=== PATIENT | female | born 1990 | race Caucasian/White ===

== ENCOUNTER 2019-08-21 01:34 | Inpatient (IN) | payer OTHER ==
[~2019-08-21] VITALS: Ht 162.6 cm; Wt 78.8 kg
[2019-08-21] MEDS ORDERED: FAMOTIDINE 20 MG/2 ML ONE (01:56)
[2019-08-21] MEDS ORDERED: ONDANSETRON 2MG/ML, 2ML ONE ×2 (01:56→05:53)
[2019-08-21] MEDS ORDERED: MORPHINE SULFATE 4 MG/ML, 1ML ONE ×2 (01:56→02:40)
[2019-08-21] MEDS ORDERED: ONDANSETRON 2MG/ML, 2ML IVPush ONE (02:00)
[2019-08-21] MEDS ORDERED: SODIUM CHLORIDE FLUSH 10ML SYR IVF ONE (02:00)
[2019-08-21] MEDS ORDERED: FAMOTIDINE 20 MG/2 ML IV ONE (02:00)
--- NOTE | 2019-08-21 02:10 | NUR ---
PT REPORTS UPPER ABD PAIN AFTER EATING A STEAK.
[2019-08-21 02:14] LABS: MEAN CORPUSCULAR HEMOGLOBIN 29.4 pg (27.0-34.8); MEAN CORPUSCULAR HGB CONC 32.9 g/dL (32.4-35.8); MEAN CORPUSCULAR VOLUME 89.6 fL (80-100); MEAN PLATELET VOLUME 7.5 fL (7.4-10.4); PLATELET COUNT 389 x10^3/uL (130-400); RED BLOOD COUNT 4.56 x10^6/uL (3.82-5.3); RED CELL DISTRIBUTION WIDTH 13.8 % (9.6-15.2)
[2019-08-21] MEDS: MORPHINE SULFATE 4 MG/ML, 1ML IVPush PRN ×2 (02:21→02:44)
--- NOTE | 2019-08-21 02:22 | NUR ---
TO US AT THIS TIME, MEDICATED PRIOR FOR PAIN
[2019-08-21 02:28] LABS: ALANINE AMINOTRANSFERASE 30 U/L (12-78); ALBUMIN 3.6 g/dL (3.4-5.0); ANION GAP 8 mmol/L (5-15); CALCIUM 8.7 mg/dL (8.5-10.1); CHLORIDE 107 mmol/L (98-107); CREATININE 0.84 mg/dL (0.55-1.02)
[2019-08-21 02:32] LABS: ALKALINE PHOSPHATASE 63 U/L (45-117); BILIRUBIN,TOTAL 0.3 mg/dL (0.2-1.0); TOTAL PROTEIN 7.1 g/dL (6.4-8.2)
[2019-08-21 02:42] LABS: BASOPHILS # (AUTO) 0.14 x10^3/uL (0-0.1); BASOPHILS % (AUTO) 1 % (0-1); EOSINOPHILS # (AUTO) 0.03 x10^3/uL (0-0.4); EOSINOPHILS % (AUTO) 0 % (1-7); LYMPHOCYTES # (AUTO) 4.87 x10^3/uL (1-3.4); LYMPHOCYTES % (AUTO) 24 % (22-44); MD SCAN; MONOCYTES # (AUTO) 0.82 x10^3/uL (0.2-0.8); MONOCYTES % (AUTO) 4 % (2-9); NEUTROPHILS # (AUTO) 14.17 x10^3/uL (1.8-6.8); NEUTROPHILS % (AUTO) 71 % (42-75)
--- NOTE | 2019-08-21 02:44 | NUR ---
MEDICATED FOR PAIN
[2019-08-21] MEDS ORDERED: HYDROmorphone 1 MG/ML, 1ML VIAL ONE (03:11)
--- NOTE | 2019-08-21 03:14 | NUR ---
MEDICATED FOR PAIN
[2019-08-21] MEDS ORDERED: HYDROmorphone 1 MG/ML, 1ML INJ IV ONE (03:30)
[2019-08-21] MEDS ORDERED: PIPERACILLIN/TAZO/PMX 3.375GM 50 ML IV ONE (04:00)
[2019-08-21] MEDS ORDERED: PIPERACILLIN/TAZO/PMX 3.375GM 50 ML ONE (04:14)
[2019-08-21] MEDS ORDERED: SODIUM CHLORIDE 0.9% 1,000 ML IV ONE (04:42)
--- NOTE | 2019-08-21 04:43 | NUR ---
report to or at this time
[2019-08-21] MEDS ORDERED: BUPIVACAINE/PF 0.5% ONE (04:55)
[2019-08-21] MEDS ORDERED: EPINEPHRINE 1 MG/ML, 1ML ONE (04:55)
[2019-08-21] MEDS ORDERED: BUPIVACAINE/PF-EPI 0.5% 1:200K INFIL ONE (04:59)
[2019-08-21] MEDS ORDERED: FENTANYL PF 250 MCG/5ML ONE (05:23)
[2019-08-21] MEDS ORDERED: SUCCINYLCHOLINE 20 MG/ML, 10ML ONE (05:31)
[2019-08-21] MEDS ORDERED: PROPOFOL 10 MG/ML, 20ML ONE (05:31)
[2019-08-21] MEDS ORDERED: DEXAMETHASONE 4 MG/ML, 1ML ONE ×2 (05:31)
[2019-08-21] MEDS ORDERED: ROCURONIUM 10MG/ML,5ML ONE (05:32)
[2019-08-21] MEDS ORDERED: MEPERIDINE/PF 25MG/ML,1ML IVPush PRN (06:00)
[2019-08-21] MEDS ORDERED: ONDANSETRON 2MG/ML, 2ML IV PRN (06:00)
[2019-08-21] MEDS ORDERED: PROMETHAZINE 25 MG/ML, 1ML IV PRN (06:00)
[2019-08-21] MEDS ORDERED: OXYcodone 5 MG/5 ML ORAL.SOL UDC PO PRN (06:00)
[2019-08-21] MEDS ORDERED: hydrALAzine 20 MG/ML, 1ML IV PRN (06:00)
[2019-08-21] MEDS ORDERED: FENTANYL PF 100 MCG/2ML IV PRN (06:00)
[2019-08-21] MEDS ORDERED: LABETALOL 5MG/ML, 20ML IV PRN (06:00)
[2019-08-21] MEDS ORDERED: HYDROmorphone 2 MG/ML, 1ML IVPush PRN (06:00)
[2019-08-21] MEDS ORDERED: ACETAMINOPHEN 325 MG TABLET PO PRN (06:00)
[2019-08-21] MEDS ORDERED: LACTATED RINGERS 1,000 ML IV SCH (06:36)
[2019-08-21] MEDS ORDERED: OXYcodone 5 MG/5 ML ORAL.SOL UDC ONE (06:44)
[2019-08-21] MEDS ORDERED: morphine SULFATE 10 MG/ML, 1ML IVPush PRN (07:00)
[2019-08-21] MEDS ORDERED: PROMETHAZINE 25 MG/ML, 1ML IM PRN (07:00)
[2019-08-21] MEDS ORDERED: ONDANSETRON 2MG/ML, 2ML IVPush PRN (07:00)
[2019-08-21 07:25] VITALS: BP 128/82
[2019-08-21] MEDS ORDERED: morphine SULFATE 10 MG/ML, 1ML ONE (08:54)
[2019-08-21] MEDS ORDERED: OXYcodone/APAP 7.5/325MG TABLET PO PRN (09:00)
[2019-08-21 12:45] VITALS: BP 120/79
[2019-08-21] MEDS ORDERED: OXYC-306 PO (14:05)
[2019-08-21] MEDS ORDERED: ONDA4TAB7 PO (14:05)
== END 2019-08-21 14:30 | disposition home or self-care (01) | DRG 419 ==
LOC: ED 02:15 → EDIP 04:48 → 4NE 07:29 → DCLOUNGE 14:11
PROVIDERS: ADMIT Surgery; ATTEND Surgery
PROC: 0FT44ZZ Resection of Gallbladder, Percutaneous Endoscopic Approach (ICD-10-PCS; principal; 2019-08-21 05:30)
DX: K80.62 Calculus of gallbladder and bile duct with acute cholecystitis without obstruction (principal); K82.8 Other specified diseases of gallbladder; K21.9 Gastro-esophageal reflux disease without esophagitis
CPT/HCPCS: 36415; J3490; S0020; 76700; 80053; 83690; 84703; 85025; 88304; 99285; J0171; J1100; J1170; J2405; J2543; J2704; J3010; J0330; J2270; J7030

== ENCOUNTER 2020-01-07 09:27 | Outpatient (CLI) | payer OTHER ==
[~2020-01-07 09:27] MED LIST: ONDA4TAB7 PO; OXYC-306 PO
[2020-01-07 09:50] LABS: BASOPHILS # (AUTO) 0.03 x10^3/uL (0-0.1); BASOPHILS % (AUTO) 0 % (0-1); EOSINOPHILS # (AUTO) 0.13 x10^3/uL (0-0.4); EOSINOPHILS % (AUTO) 2 % (1-7); LYMPHOCYTES # (AUTO) 2.72 x10^3/uL (1-3.4); LYMPHOCYTES % (AUTO) 35 % (22-44); MD NO; MEAN CORPUSCULAR HEMOGLOBIN 30.1 pg (27.0-34.8); MEAN CORPUSCULAR HGB CONC 34.1 g/dL (32.4-35.8); MEAN CORPUSCULAR VOLUME 88.3 fL (80-100); MEAN PLATELET VOLUME 8.2 fL (7.4-10.4); MONOCYTES # (AUTO) 0.38 x10^3/uL (0.2-0.8); MONOCYTES % (AUTO) 5 % (2-9); NEUTROPHILS # (AUTO) 4.45 x10^3/uL (1.8-6.8); NEUTROPHILS % (AUTO) 58 % (42-75); PLATELET COUNT 313 x10^3/uL (130-400); RED BLOOD COUNT 4.49 x10^6/uL (3.82-5.3)
[2020-01-07 10:01] LABS: ALANINE AMINOTRANSFERASE 25 U/L (12-78); ALBUMIN 3.8 g/dL (3.4-5.0); ANION GAP 4 mmol/L (5-15); CALCIUM 8.8 mg/dL (8.5-10.1); CHLORIDE 109 mmol/L (98-107); CREATININE 0.85 mg/dL (0.55-1.02)
[2020-01-07 10:02] LABS: HCT (SEDRATE) 39.7 % (34.6-47.8)
[2020-01-07 10:05] LABS: ALKALINE PHOSPHATASE 73 U/L (45-117); BILIRUBIN,TOTAL 0.5 mg/dL (0.2-1.0); TOTAL PROTEIN 7.5 g/dL (6.4-8.2)
== END 2020-01-07 23:59 | disposition home or self-care (01) ==
LOC: LAB 09:27
PROVIDERS: ATTEND Family Medicine
DX: E55.9 Vitamin D deficiency, unspecified (principal); G47.9 Sleep disorder, unspecified; R51 Headache
CPT/HCPCS: 36415; 80053; 82306; 82728; 85025; 85651; 86038; 86160; 86225

== ENCOUNTER 2020-01-08 10:48 | Outpatient (CLI) | payer OTHER | END 2020-01-08 23:59 | disposition home or self-care (01) | LOC: RAD 10:48 | PROVIDERS: ATTEND Family Medicine | DX: H93.8X3 Other specified disorders of ear, bilateral (principal); R51 Headache | CPT/HCPCS: 72040 ==

== ENCOUNTER 2020-02-14 14:08 | Outpatient (CLI) | payer OTHER ==
[2020-02-14] MEDS ORDERED: OMNIPAQUE 350 MG/ML, 100ML BOTTLE ONE (15:51)
== END 2020-02-14 23:59 | disposition home or self-care (01) ==
LOC: RAD 14:08
PROVIDERS: ATTEND Otolaryngology
DX: H93.A9 Pulsatile tinnitus, unspecified ear (principal)
CPT/HCPCS: 70480; Q9967

== ENCOUNTER 2020-02-20 16:00 | Emergency (ER) | payer OTHER ==
[~2020-02-20] VITALS: Ht 162.6 cm; Wt 74.0 kg
--- NOTE | 2020-02-20 16:42 | NUR ---
PT WITH C/O "MIGRAINE LIKE" JOSEPH, SINUS PRESSURE. PT STATES SHE SLIGHTLY INCREASE IN WORK OF BREATHING. PT WITH POSITIVE COVID TEST REPORTED TODAY, SHE WAS TESTED 02/17. PT STATES SHE HAS REALLY BEEN HAVING SINUS ISSUES SINCE 2018. PT STATES SHE RECENTLY HAD AN MRI THAT SHOWED FLUID IN HER SINUS CAVITIES. PT STATES SHE WAS THEN PUT ON AUGMENTIN FROM PCP. SHE STATES HER JOSEPH AND SINUS SYMPTOMS HAVE GOTTON WORSE OVER THE LAST 6 DAYS. NO CP REPORTED. PT TO BP, CONT PULSE OX, CARD MONITOR.
--- NOTE | 2020-02-20 16:49 | NUR ---
PT WITH RECENT SINUS INFECTION PER PT SHE HAS BEEN ON AUGMENTIN FOR FIVE DAYS.
[2020-02-20] MEDS ORDERED: PSEUDOEPHEDRINE 30 MG TABLET PO PRN (17:00)
[2020-02-20] MEDS ORDERED: ACETAMINOPHEN 500 MG TABLET PO ONE (17:00)
[2020-02-20] MEDS ORDERED: KETOROLAC 30 MG/1 ML ONE (17:16)
[2020-02-20] MEDS ORDERED: ACETAMINOPHEN 500 MG TABLET ONE (17:16)
[2020-02-20] MEDS ORDERED: PROCHLORPERAZINE 5 MG/ML, 2ML ONE (17:16)
[2020-02-20 17:29] LABS: BASOPHILS # (AUTO) 0.04 x10^3/uL (0-0.1); BASOPHILS % (AUTO) 1 % (0-1); EOSINOPHILS # (AUTO) 0.06 x10^3/uL (0-0.4); EOSINOPHILS % (AUTO) 1 % (1-7); LYMPHOCYTES # (AUTO) 1.32 x10^3/uL (1-3.4); LYMPHOCYTES % (AUTO) 29 % (22-44); MD NO; MEAN CORPUSCULAR HEMOGLOBIN 29.4 pg (27.0-34.8); MEAN CORPUSCULAR HGB CONC 33.4 g/dL (32.4-35.8); MEAN PLATELET VOLUME 8.2 fL (7.4-10.4); MONOCYTES # (AUTO) 0.31 x10^3/uL (0.2-0.8); MONOCYTES % (AUTO) 7 % (2-9); NEUTROPHILS # (AUTO) 2.84 x10^3/uL (1.8-6.8); NEUTROPHILS % (AUTO) 62 % (42-75); PLATELET COUNT 245 x10^3/uL (130-400); RED BLOOD COUNT 4.78 x10^6/uL (3.82-5.3); RED CELL DISTRIBUTION WIDTH 13.4 % (9.6-15.2)
[2020-02-20] MEDS ORDERED: KETOROLAC 30 MG/1 ML IVPush ONE (17:30)
[2020-02-20] MEDS ORDERED: SODIUM CHLORIDE 0.9% 1,000ML IVBOLUS ONE (17:30)
[2020-02-20] MEDS ORDERED: PROCHLORPERAZINE 5 MG/ML, 2ML IVPush ONE (17:30)
[2020-02-20 17:40] LABS: ANION GAP 6 mmol/L (5-15); CALCIUM 8.4 mg/dL (8.5-10.1); CHLORIDE 106 mmol/L (98-107); CREATININE 0.78 mg/dL (0.55-1.02)
[2020-02-20 17:46] VITALS: BP 113/72
--- NOTE | 2020-02-20 17:50 | NUR ---
PIV INITIATED, PT MEDICATED PER MAR, VSS. NAD NOTED
== END 2020-02-20 18:34 | disposition home or self-care (01) ==
LOC: ED 18:07
DX: U07.1 COVID-19 (principal); B34.9 Viral infection, unspecified; R06.02 Shortness of breath; R50.9 Fever, unspecified; H92.09 Otalgia, unspecified ear; R51 Headache; K21.9 Gastro-esophageal reflux disease without esophagitis
CPT/HCPCS: 36415; 71045; 80048; 85025; 96374; 96375; 99284; J0780; J1885; J7030

== ENCOUNTER 2021-04-22 23:35 | Outpatient (CLI) | payer OTHER ==
[~2021-04-22] VITALS: Ht 162.6 cm; Wt 82.3 kg
[~2021-04-22 23:35] MED LIST changes: -OXYC-306 PO; +OXYC1TAB17 PO
[2021-04-23 00:09] VITALS: BP 128/69
== END 2021-04-23 00:56 | disposition home or self-care (01) ==
LOC: LDOP 23:35
PROVIDERS: ATTEND Obstetrics & Gynecology
DX: O42.92 Full-term premature rupture of membranes, unspecified as to length of time between rupture and onset of labor (principal); Z3A.38 38 weeks gestation of pregnancy
CPT/HCPCS: 59025

== ENCOUNTER 2021-04-23 23:58 | Inpatient (IN) | payer OTHER ==
[~2021-04-23] VITALS: Ht 162.6 cm; Wt 82.0 kg
[2021-04-24] MEDS ORDERED: OXYTOCIN 30U/ 0.9% NaCL 500ML 500 ML IV ONE (00:30)
[2021-04-24] MEDS ORDERED: ONDANSETRON 2MG/ML, 2ML IVPush PRN (00:30)
[2021-04-24] MEDS ORDERED: TERBUTALINE 1 MG/ML, 1ML SQ PRN (00:30)
[2021-04-24] MEDS ORDERED: FENTANYL PF 100 MCG/2ML IV PRN (00:30)
[2021-04-24] MEDS ORDERED: FENTANYL PF 100 MCG/2ML IVPush PRN (00:30)
[2021-04-24] MEDS ORDERED: TERBUTALINE 1 MG/ML, 1ML IVPush PRN (00:30)
[2021-04-24] MEDS ORDERED: MISOPROSTOL 200 MCG TABLET ONE (00:40)
[2021-04-24] MEDS ORDERED: LIDOCAINE 1%, 20ML ONE (00:40)
[2021-04-24] MEDS ORDERED: NEWBORN KIT ONE (00:40)
[2021-04-24 00:41] LABS: BASOPHILS % (AUTO) 1 % (0-1); EOSINOPHILS % (AUTO) 1 % (1-7); LYMPHOCYTES % (AUTO) 19 % (22-44); MEAN CORPUSCULAR HEMOGLOBIN 30.6 pg (27.0-34.8); MEAN CORPUSCULAR HGB CONC 33.7 g/dL (32.4-35.8); MEAN PLATELET VOLUME 10.3 fL (7.4-10.4); MONOCYTES % (AUTO) 6 % (2-9); NEUTROPHILS % (AUTO) 73 % (42-75); PLATELET COUNT 180 x10^3/uL (130-400); RED BLOOD COUNT 4.45 x10^6/uL (3.82-5.3); RED CELL DISTRIBUTION WIDTH 14.3 % (9.6-15.2)
[2021-04-24 00:52] VITALS: BP 135/78
[2021-04-24] MEDS: LACTATED RINGERS 1,000 ML IV SCH ×3 (01:25→08:48)
[2021-04-24] MEDS ORDERED: BUPIVACAINE 0.25% ONE (02:19)
[2021-04-24] MEDS ORDERED: FENTANYL/BUPIV./NS/PF 250 ML EPIDCONT ONE (02:19)
[2021-04-24] MEDS ORDERED: CALCIUM CARBONATE 500 MG TAB.CHEW ONE (07:51)
[2021-04-24] MEDS ORDERED: CALCIUM CARBONATE 500 MG TAB.CHEW PO PRN (08:00)
[2021-04-24] MEDS: D5%-LACTATED RINGERS 1,000 ML IV SCH ×3 (08:48→20:00)
[2021-04-24] MEDS ORDERED: OXYTOCIN 30U/ 0.9% NaCL 500ML 500 ML IV PRN (10:00)
[2021-04-24] MEDS: OXYTOCIN 30U/ 0.9% NaCL 500ML 500 ML IV SCH (14:30)
[2021-04-24] MEDS ORDERED: OXYcodone/APAP 5/325MG TABLET PO PRN ×2 (14:30)
[2021-04-24] MEDS ORDERED: MISOPROSTOL 200 MCG TABLET PR PRN (14:30)
[2021-04-24] MEDS ORDERED: SIMETHICONE 80 MG CHEW TAB PO PRN (14:30)
[2021-04-24 17:05] VITALS: BP 121/80
[2021-04-24] MEDS: IBUPROFEN 600 MG TABLET PO PRN (19:10)
[2021-04-24 19:25] VITALS: BP 131/84
[2021-04-24] MEDS ORDERED: DOCUSATE 100 MG CAPSULE PO SCH (21:00)
[2021-04-24] MEDS ORDERED: DIPH,PERTUSS(ACELL),TET VAC/PF NC IM-VACC ONE ×2 (21:30→21:32)
[2021-04-24 22:16] LABS: BASOPHILS % (AUTO) 1 % (0-1); EOSINOPHILS % (AUTO) 1 % (1-7); LYMPHOCYTES % (AUTO) 13 % (22-44); MEAN CORPUSCULAR HGB CONC 33.8 g/dL (32.4-35.8); MEAN PLATELET VOLUME 10.1 fL (7.4-10.4); MONOCYTES % (AUTO) 6 % (2-9); NEUTROPHILS % (AUTO) 80 % (42-75); PLATELET COUNT 165 x10^3/uL (130-400); RED CELL DISTRIBUTION WIDTH 14.1 % (9.6-15.2)
[2021-04-24 23:57] VITALS: BP 116/77
[2021-04-25] MEDS: OXYTOCIN 30U/ 0.9% NaCL 500ML 500 ML IV SCH (00:30)
[2021-04-25] MEDS: IBUPROFEN 600 MG TABLET PO PRN ×3 (02:00→13:27)
[2021-04-25] MEDS: LACTATED RINGERS 1,000 ML IV SCH (04:00)
[2021-04-25] MEDS: D5%-LACTATED RINGERS 1,000 ML IV SCH (04:00)
[2021-04-25] MEDS ORDERED: IBUP-1223 PO (04:01)
[2021-04-25] MEDS ORDERED: DOCU-131 PO (04:01)
[2021-04-25 04:49] VITALS: BP 109/70
[2021-04-25 08:30] VITALS: BP 129/86
[2021-04-25] MEDS ORDERED: PRENATAL VIT/IRON/FA 1 EACH TABLET PO SCH (09:00)
[2021-04-25 13:00] VITALS: BP 105/68
== END 2021-04-25 16:50 | disposition home or self-care (01) | DRG 807 ==
LOC: LDOP 23:58 → LDIP 04-24 00:28 → 2NW 04-24 16:47
PROVIDERS: ADMIT Obstetrics & Gynecology; ATTEND Obstetrics & Gynecology
PROC: 10E0XZZ Delivery of Products of Conception, External Approach (ICD-10-PCS; principal; 2021-04-24)
PROC: 0KQM0ZZ Repair Perineum Muscle, Open Approach (ICD-10-PCS; 2021-04-24)
PROC: 3E0R3BZ Introduction of Anesthetic Agent into Spinal Canal, Percutaneous Approach (ICD-10-PCS; 2021-04-24)
PROC: 00HU33Z Insertion of Infusion Device into Spinal Canal, Percutaneous Approach (ICD-10-PCS; 2021-04-24)
DX: O99.354 Diseases of the nervous system complicating childbirth (principal); Z37.0 Single live birth; O62.2 Other uterine inertia; Z20.822 Contact with and (suspected) exposure to COVID-19; G43.909 Migraine, unspecified, not intractable, without status migrainosus; Z3A.38 38 weeks gestation of pregnancy; Z90.49 Acquired absence of other specified parts of digestive tract; O70.1 Second degree perineal laceration during delivery
CPT/HCPCS: 36415; J7121; 85025; 86592; 86850; 86900; 87635; 90715; G0378; J2590; J7120